=== PATIENT | female | born 1960 | race Caucasian/White ===

== ENCOUNTER 2021-09-17 16:06 | Emergency (ER) | payer MEDICAID, OTHER ==
[~2021-09-17] VITALS: Ht 157.5 cm; Wt 68.5 kg
[~2021-09-17 16:06] MED LIST: RIVA15TA1
[2021-09-17 16:28] VITALS: BP 147/76
--- NOTE | 2021-09-17 16:34 | NUR ---
PT RETURNED TO LOBBY AT THIS TIME
--- NOTE | 2021-09-17 17:18 | NUR ---
PT TAKEN TO TRIAGE, MD ASSESSING PT IN ROOM FOR EYE ASSESSMENT AT THIS TIME
[2021-09-17] MEDS ORDERED: FLUORESCEIN OPTH STRIP 1 MG OP ONE (17:25)
[2021-09-17] MEDS ORDERED: TETRACAINE HCL/PF 0.5% OPTH 4 ML BTL OP ONE (17:25)
[2021-09-17] MEDS ORDERED: TOMOMETER 1 DEV DEV MC ONE (17:29)
[2021-09-17] MEDS ORDERED: POLY10SO OP (17:43)
[2021-09-17] MEDS ORDERED: VALA1TAB42 PO (17:43)
[2021-09-17] MEDS ORDERED: NAPR-54 PO (17:43)
--- NOTE | 2021-09-17 17:44 | NUR ---
60 Y/O F BIB SELF FROM BUS, C/O REDNESS AND INFLAMMATION ON L EYE FOR 2 WEEKS WITH RASH ON FACE. DENIES INJURY TO HEAD, FACE OR EYE. DENIES N/V/D; SKIN IS PINK/WARM/DRY; AAOX4 WITH EVEN AND STEADY GAIT; LUNGS CLEAR BL; HR EVEN AND REGULAR; PT DENIES ANY FEVER, CP, SOB, OR COUGH AT THIS TIME; PATIENT STATES PAIN OF 0/10 AT THIS TIME; VSS. ER MD MADE AWARE OF PT STATUS. PMH: DENIES NKA MED: DENIES
[2021-09-17 18:03] VITALS: BP 147/76
--- NOTE | 2021-09-17 18:03 | NUR ---
Patient discharged with v/s stable.Pt left facility before receiveing discharge instructions. Patient alert, oriented prior to leaving hospital. Ambulatory with steady gait. All questions addressed prior to discharge. . Patient advised to follow up with PMD. Rx of Naprosyn, Polytrim eye drops, and Valacyclovir given.
== END 2021-09-17 18:03 | disposition home or self-care (01) ==
LOC: MED 16:06
DX: H10.9 Unspecified conjunctivitis (principal); B02.9 Zoster without complications; Z85.3 Personal history of malignant neoplasm of breast; Z85.42 Personal history of malignant neoplasm of other parts of uterus; Z90.710 Acquired absence of both cervix and uterus; Z79.899 Other long term (current) drug therapy; Z90.10 Acquired absence of unspecified breast and nipple
CPT/HCPCS: 99283